=== PATIENT | male | born 1985 | race African-American/Black ===

== ENCOUNTER 2021-05-12 18:39 | Inpatient (IN) | payer MEDICARE, MEDICAID ==
[2021-05-12] MEDS ORDERED: Midazolam HCl 2 mg/2 ml Vial ONE (19:59)
[2021-05-12] MEDS ORDERED: Ondansetron PF 4 MG/2 ML Vial IVP PRN (20:59)
[2021-05-12] MEDS ORDERED: Calcium Carbonate 500 MG ChewTAB PO PRN (20:59)
[2021-05-12] MEDS ORDERED: Guaifenesin DM 100-10/5 ML UDCUP PO PRN (20:59)
[2021-05-12] MEDS ORDERED: Acetaminophen 325 MG TAB PO PRN (20:59)
[2021-05-12] MEDS ORDERED: Senokot S 8.6-50 MG TAB PO PRN (20:59)
[2021-05-12] MEDS ORDERED: HYDROcodone/Acetaminophen 5/325 mg Tablet PO PRN (20:59)
[2021-05-12] MEDS ORDERED: traZODone HCl 50 MG TAB PO PRN (21:06)
[2021-05-13] MEDS ORDERED: Sodium Chloride 0.9% 500 ML IV SCH (01:15)
[2021-05-13] MEDS ORDERED: Atorvastatin Calcium 20 MG TAB PO SCH (01:15)
[2021-05-13] MEDS ORDERED: Atorvastatin Calcium 10 MG TAB ONE (02:37)
[2021-05-13] MEDS: Famotidine 20 MG TAB PO SCH ×3 (03:38→20:09)
[2021-05-13 04:08] LABS: #Eosinphils 0.1 10x3/uL (0.0-0.5); #Monocytes 0.8 10x3/uL (0.0-1.1); #Neutrophils 2.8 10x3/uL (1.5-8.4); %Basophils 0.5 % (0.0-2.0); %Eosinophils 1.6 % (0.0-6.0); %Lymphocytes 41.3 % (18.0-47.0); %Monocytes 12.3 % (0.0-10.0); Mean Corpuscular HGB CONC 34.3 g/dL (32.0-36.0); Mean Corpuscular Hemoglobin 30.5 pg (27.0-33.0); Mean Platelet Volume 9.3 fl (7.4-10.4); Platelet Count 245 10x3/uL (150-450); RBC Distribution Width 13.7 % (11.5-14.5); Red Blood Cell (RBC) Count 4.26 10x6/uL (4.32-5.72); White Blood Cell (WBC) Count 6.3 10x3/uL (3.5-10.5)
[2021-05-13 04:16] LABS: ALT (SGPT) 17 U/L (8-55); AST (SGOT) 24 U/L (5-34); Albumin 3.3 g/dL (3.5-5.0); Alkaline Phosphatase 56 U/L (40-110); Anion Gap 10 mmol/L (10-20); BUN (Urea Nitrogen) 10 mg/dL (8.9-20.6); Bilirubin, Total 0.3 mg/dL (0.2-1.2); CK (CPK) 591 U/L (30-200); Calc. Creatinine Clearance 0 mL/min (70-130); Calcium 8.4 mg/dL (7.8-10.44); Carbon Dioxide 24 mmol/L (22-29); Cardiac Risk 11.2 (Less than 4.5); Chloride 104 mmol/L (98-107); Cholesterol 337 mg/dl (< 200 Desired); Globulin 5.5 g/dL (2.4-3.5); Glucose 88 mg/dL (70-105); HDL Cholesterol 30 mg/dL (>60 Neg Risk); LDL Cholesterol, Calculated 275 mg/dL; Potassium 3.5 mmol/L (3.5-5.1); Protein, Total 8.8 g/dL (6.0-8.3); Sodium 134 mmol/L (136-145); Triglycerides 159 mg/dL (Less than 150)
[2021-05-13] MEDS ORDERED: Clopidogrel Bisulfate 75 MG TAB ONE (07:33)
[2021-05-13] MEDS ORDERED: Aspirin Chewable 81 MG TAB ONE (07:33)
[2021-05-13] MEDS ORDERED: Enoxaparin Sodium 40 MG/0.4 ML SYRINGE ONE (07:33)
[2021-05-13] MEDS ORDERED: Famotidine 20 MG TAB ONE (07:38)
[2021-05-13] MEDS ORDERED: Ascorbic Acid 500 mg Chewable Tablet ONE (07:38)
[2021-05-13] MEDS ORDERED: Cholecalciferol 1,000 UNITS (25 MCG) TAB ONE (07:38)
[2021-05-13] MEDS ORDERED: Carvedilol 3.125 MG TAB ONE (07:39)
[2021-05-13] MEDS: Carvedilol 3.125 MG TAB PO SCH ×2 (08:22→16:59)
[2021-05-13] MEDS: Ascorbic Acid 500 mg Chewable Tablet PO SCH (08:22)
[2021-05-13] MEDS: Aspirin 81 mg Enteric Coated Tablet PO SCH (08:23)
[2021-05-13] MEDS: Zinc Gluconate 50 MG TAB PO SCH (08:23)
[2021-05-13] MEDS: Clopidogrel Bisulfate 75 MG TAB PO SCH (08:23)
[2021-05-13] MEDS: Cholecalciferol 1,000 UNITS (25 MCG) TAB PO SCH (08:23)
[2021-05-13] MEDS: Enoxaparin Sodium 40 MG/0.4 ML SYRINGE SC SCH (08:23)
[2021-05-13 10:43] LABS: Magnesium 1.7 mg/dL (1.6-2.6)
[2021-05-13] MEDS ORDERED: Polyvinyl Alcohol 1.4%/Povidone 0.6% Opth Drops EA EYE PRN (11:30)
[2021-05-13 16:16] VITALS: BMI 29.5
[2021-05-13] MEDS ORDERED: FLU VACC QS2021-22(6MOS UP)/PF 60 MCG/0.5 ML SYRINGE IM ONE (17:30)
[2021-05-13] MEDS ORDERED: Artificial Tear Sol 15 ML BOT EA EYE PRN (20:49)
[2021-05-13] MEDS ORDERED: Atorvastatin Calcium 40 MG TAB PO SCH (21:00)
[2021-05-13 22:39] LABS: Amphetamine Detected (NotDetected); Barbiturates Screen Not Detected (NotDetected); Benzodiazepine Screen Not Detected (NotDetected); Cocaine Metabolite Screen Not Detected (NotDetected); Methadone Not Detected (NotDetected); Methamphetamine Detected (NotDetected); Opiate Screen Detected (NotDetected); Oxycodone Screen Not Detected (NotDetected); Phencyclidine (PCP) Not Detected (NotDetected); THC/Cannabinoid Screen Not Detected (NotDetected); Tricyclic Screen Not Detected (NotDetected)
[2021-05-14] MEDS: Enoxaparin Sodium 40 MG/0.4 ML SYRINGE SC SCH (08:38)
[2021-05-14] MEDS: Cholecalciferol 1,000 UNITS (25 MCG) TAB PO SCH (08:58)
[2021-05-14] MEDS: Aspirin 81 mg Enteric Coated Tablet PO SCH (08:58)
[2021-05-14] MEDS: Ascorbic Acid 500 mg Chewable Tablet PO SCH (08:58)
[2021-05-14] MEDS: Zinc Gluconate 50 MG TAB PO SCH (08:58)
[2021-05-14] MEDS: Clopidogrel Bisulfate 75 MG TAB PO SCH (08:59)
[2021-05-14] MEDS: Carvedilol 3.125 MG TAB PO SCH (08:59)
[2021-05-14] MEDS: Famotidine 20 MG TAB PO SCH (08:59)
[2021-05-14 12:52] VITALS: TEMP 98
[2021-05-14 18:13] VITALS: BP 95/60
== END 2021-05-14 16:30 | DRG 313 ==
LOC: CSHERS 18:39 → INTOOBSV 20:59 → CSHERHOLD 20:59 → UNDOADMIN 05-13 02:01 → CSHERHOLD 05-13 02:01 → CSHTELE 05-13 14:51 → OBSVTOIN 05-14 09:40
PROVIDERS: ADMIT Student in an Organized Health Care Education/Training Program; ATTEND Internal Medicine
PROC: 8E0ZXY6 Isolation (ICD-10-PCS; principal; 2021-05-14)
DX: R07.89 Other chest pain (principal); U07.1 COVID-19; R45.851 Suicidal ideations; E87.1 Hypo-osmolality and hyponatremia; F90.9 Attention-deficit hyperactivity disorder, unspecified type; F41.9 Anxiety disorder, unspecified; F31.9 Bipolar disorder, unspecified; F20.9 Schizophrenia, unspecified; I25.10 Atherosclerotic heart disease of native coronary artery without angina pectoris; I10 Essential (primary) hypertension; E78.5 Hyperlipidemia, unspecified; Z21 Asymptomatic human immunodeficiency virus [HIV] infection status; E87.5 Hyperkalemia; E86.0 Dehydration; F10.10 Alcohol abuse, uncomplicated; Z95.5 Presence of coronary angioplasty implant and graft; Z91.14 Patient's other noncompliance with medication regimen
CPT/HCPCS: 36415; 71045; 71275; 80053; 80061; 80306; 82550; 82607; 82746; 83735; 83880; 84443; 84484; 85025; 93005; 93010; 93306; G0378; J1650; J2250; J7030